=== PATIENT | male | born 1975 | race Caucasian/White ===

== ENCOUNTER 2022-06-17 08:17 | Outpatient (CLI) | payer BC | END 2022-06-17 08:18 | disposition home or self-care (01) | LOC: SCSMRI 08:17 | PROVIDERS: ATTEND Otolaryngology Otolaryngic Allergy | DX: H91.21 Sudden idiopathic hearing loss, right ear (principal); R90.89 Other abnormal findings on diagnostic imaging of central nervous system | CPT/HCPCS: 70553 ==